=== PATIENT | female | born 2000 | race African-American/Black ===

== ENCOUNTER 2019-09-01 18:20 | Emergency (ER) | payer BC ==
[2019-09-01 18:42] VITALS: TEMP 98.4
[2019-09-01] MEDS ORDERED: FAMOTIDINE 20 MG TAB PO STA (18:51)
[2019-09-01] MEDS ORDERED: IPRATROPIUM-ALBUTEROL 3 ML NEB INHALATION STA (18:51)
[2019-09-01] MEDS ORDERED: predniSONE 20 MG TAB PO STA (18:52)
--- NOTE | 2019-09-01 19:43 | XR ---
EXAMINATION TYPE: XR chest 2V DATE OF EXAM: 09/01/2019 COMPARISON: NONE HISTORY: Cough and congestion TECHNIQUE: 2 views FINDINGS: Heart and mediastinum are normal. Lungs are clear. Diaphragm is normal. Bony thorax appears normal. IMPRESSION: Normal chest.
--- NOTE | 2019-09-01 20:15 | ED ---
SOB HPI - General Chief Complaint: Shortness of Breath Stated Complaint: Sob Time Seen by Provider: 09/01/19 18:44 Source: patient Mode of arrival: ambulatory Limitations: no limitations - History of Present Illness Initial Comments: Patient is a 19-year-old female with history of asthma presenting to the emergency department with a chief complaint of shortness of breath. Symptoms have been ongoing for the last several days. Patient reports using regular nebulizer albuterol treatments minimal upper arm. Typically the steroid helps according to the patient. She denies any nausea vomiting diarrhea. Does report some shortness of breath and dyspnea on exertion but denies any chest pain at this time. Does report some nonproductive coughing and denies any upper respiratory like symptoms. Denies taking any medication to alleviate the symptoms.. - Related Data Previous Rx's Medication Instructions Recorded Famotidine [Pepcid] 20 mg PO ONCE #5 tablet 09/01/19 predniSONE 50 mg PO DAILY #5 tab 09/01/19 Allergies Allergy/AdvReac Type Severity Reaction Status Date / Time No Known Allergies Allergy Verified 09/01/19 18:42 Review of Systems ROS Statement: Those systems with pertinent positive or pertinent negative responses have been documented in the HPI. ROS Other: All systems not noted in ROS Statement are negative. Past Medical History Past Medical History: Asthma Additional Past Medical History / Comment(s): anemia obesity History of Any Multi-Drug Resistant Organisms: None Reported Past Surgical History: No Surgical Hx Reported Past Psychological History: No Psychological Hx Reported Smoking Status: Never smoker Past Alcohol Use History: None Reported Past Drug Use History: None Reported General Exam Limitations: no limitations General appearance: alert, in no apparent distress Head exam: Present: atraumatic, normocephalic, normal inspection Eye exam: Present: normal appearance, PERRL, EOMI Pupils: Present: normal accommodation ENT exam: Present: normal exam, normal oropharynx, mucous membranes moist, TM's normal bilaterally, normal external ear exam Neck exam: Present: normal inspection, full ROM Respiratory exam: Present: wheezes (Bilateral expiratory wheezing) Cardiovascular Exam: Present: regular rate, normal rhythm, normal heart sounds Extremities exam: Present: normal inspection, full ROM Back exam: Present: normal inspection, full ROM Neurological exam: Present: alert, oriented X3 Psychiatric exam: Present: normal affect, normal mood Skin exam: Present: warm, dry, intact, normal color Course Vital Signs 09/01/19 09/01/19 09/01/19 18:38 18:47 19:10 Temperature 98.4 F Pulse Rate 92 92 Respiratory 20 20 20 Rate Blood Pressure 148/92 O2 Sat by Pulse 97 Oximetry 09/01/19 09/01/19 19:17 20:30 Temperature Pulse Rate 90 82 Respiratory 20 17 Rate Blood Pressure 140/88 O2 Sat by Pulse 98 Oximetry Medical Decision Making - Medical Decision Making Patient is a 19-year-old female with history of asthma presenting to the emergency department with a chief complaint of shortness of breath. Patient has no upper respiratory-like symptoms on physical examination. She is wheezing bilaterally on expiration. Chest x-ray was unremarkable. Patient given DuoNeb, Pepcid and prednisone. Patient will be discharged with a 5 day course of prednisone and Pepcid. Patient states that she has enough nebulized albuterol at home. I suspect the patient had asthma exacerbation. Patient advised to follow with primary care. Strict return parameters were thoroughly discussed with patient and parent were understanding and agreeable. Case discussed with physician. Disposition Clinical Impression: Asthma exacerbation Disposition: HOME SELF-CARE Condition: Stable Instructions (If sedation given, give patient instructions): Asthma (ED) Additional Instructions: Please take prescribed medication as directed. Follow with [employer]er to emergency Department if symptom worsen. Prescriptions: Famotidine [Pepcid] 20 mg PO ONCE #5 tablet predniSONE 50 mg PO DAILY #5 tab Is patient prescribed a controlled substance at d/c from ED?: No Referrals: None,Stated [Primary Care Provider] - 1-2 days Time of Disposition: 20:14
[2019-09-01 20:32] VITALS: BP 140/88; PULSE 82; RESP 17
== END 2019-09-01 20:31 | disposition home or self-care (01) ==
LOC: EC 18:20
DX: J45.901 Unspecified asthma with (acute) exacerbation (principal)
CPT/HCPCS: 94640; 71046; 99285; J7512